=== PATIENT | female | born 1950 | race Caucasian/White ===

== ENCOUNTER 2018-09-10 13:14 | Outpatient (REF) | payer MEDICARE, OTHER, SELFPAY ==
[2018-09-10 19:20] LABS: HCT 42.4 % (36.0-46.0); HGB 14.1 g/dL (12.0-15.5); Mean Corp. HGB Concentration 33.3 g/dL (32.0-36.0); Mean Corpuscular Hemoglobin 32.8 pg (27.0-33.0); Mean Corpuscular Volume 98.6 fL (80-95); Mean Platelet Volume 10.9 fL (8.0-11.0); Platelet Count 235 x1000/uL (130-400); RBC Distribution Width 12.7 % (11.7-14.6); White Blood Cell Count 4.73 k/cumm (4.4-10.8)
[2018-09-10 19:40] LABS: TSH 1.22 uIU/mL (0.358-3.74)
== END 2018-09-10 13:34 ==
LOC: NCHCN 13:14
PROVIDERS: PCP Internal Medicine; Visit Provider Internal Medicine
DX: E03.9 Hypothyroidism, unspecified (principal); I82.402 Acute embolism and thrombosis of unspecified deep veins of left lower extremity
CPT/HCPCS: 85027; 84443

== ENCOUNTER 2019-09-13 11:42 | Outpatient (REF) | payer MEDICARE, OTHER, SELFPAY ==
[2019-09-13 19:47] LABS: HCT 43.6 % (36.0-46.0); HGB 14.5 g/dL (12.0-15.5); Mean Corp. HGB Concentration 33.3 g/dL (32.0-36.0); Mean Corpuscular Hemoglobin 32.3 pg (27.0-33.0); Mean Corpuscular Volume 97.1 fL (80-95); Mean Platelet Volume 11.1 fL (8.0-11.0); Platelet Count 239 x1000/uL (130-400); RBC 4.49 m/cumm (4.00-5.20); RBC Distribution Width 12.9 % (11.7-14.6); White Blood Cell Count 5.81 k/cumm (4.4-10.8)
[2019-09-13 20:26] LABS: Anion Gap 7.1 mmol/L (3-11); BUN 23 mg/dL (7-18); CO2 27.9 mmol/L (21.0-32.0); Calcium 9.6 mg/dL (8.5-10.1); Chloride 105 mmol/L (98-107); Glucose 97 mg/dL (74-106); Potassium 3.8 mmol/L (3.5-5.1); Sodium 140 mmol/L (136-145); TSH 1.38 uIU/mL (0.36-3.74)
== END 2019-09-13 12:02 ==
LOC: LBN 11:42
PROVIDERS: PCP Internal Medicine; Visit Provider Internal Medicine
DX: E03.9 Hypothyroidism, unspecified (principal); I82.402 Acute embolism and thrombosis of unspecified deep veins of left lower extremity
CPT/HCPCS: 80048; 85027; 84443

== ENCOUNTER 2020-10-20 18:10 | Outpatient (REF) | payer MEDICARE, OTHER, SELFPAY ==
[2020-10-20 18:46] LABS: HCT 45.2 % (36.0-46.0); HGB 15.1 g/dL (11.2-15.7); MCH 33.2 pg (27.0-33.0); MCHC 33.4 % (32.0-36.0); MCV 99.3 fL (80-95); MPV 10.5 fL (8.0-11.0); Platelet Count 222 10^3/uL (130-400); RBC 4.55 10^6/uL (3.93-5.22); RDW 12.3 % (11.7-14.6); RDW-SD 45.4 fL; WBC 5.57 10^3/uL (4.4-10.8)
[2020-10-20 19:15] LABS: Anion Gap 9.1 mmol/L (3-11); BUN 24 mg/dL (7-18); CO2 27.9 mmol/L (21.0-32.0); CREATININE 0.7 mg/dL (0.55-1.02); Calcium 10.1 mg/dL (8.5-10.1); Chloride 106 mmol/L (98-107); Glucose 125 mg/dL (74-106); Potassium 3.9 mmol/L (3.5-5.1); Sodium 143 mmol/L (136-145)
== END 2020-10-20 18:11 | disposition home or self-care (01) ==
LOC: NCHCN 18:10
PROVIDERS: PCP Internal Medicine; Visit Provider Internal Medicine
DX: E03.9 Hypothyroidism, unspecified (principal); I80.202 Phlebitis and thrombophlebitis of unspecified deep vessels of left lower extremity
CPT/HCPCS: 80048; 85027; 84443

== ENCOUNTER 2022-09-09 13:14 | Outpatient (REF) | payer MEDICARE, OTHER, SELFPAY ==
[2022-09-09 20:11] LABS: HCT 42.7 % (36.0-46.0); HGB 14.7 g/dL (11.2-15.7); MCH 33.1 pg (27.0-33.0); MCHC 34.4 % (32.0-36.0); MCV 96 fL (80-95); MPV 10.8 fL (8.0-11.0); Platelet Count 205 10^3/uL (130-400); RBC 4.44 10^6/uL (3.93-5.22); RDW 11.9 % (11.7-14.6); RDW-SD 41.7 fL; WBC 6.87 10^3/uL (4.4-10.8)
[2022-09-09 20:33] LABS: Anion Gap 6.3 mmol/L (3-11); BUN 24 mg/dL (7-18); CO2 30.7 mmol/L (21.0-32.0); CREATININE 0.7 mg/dL (0.55-1.02); Calcium 10.3 mg/dL (8.5-10.1); Chloride 103 mmol/L (98-107); Estimated GFR 93.56 (mL/min/1.73m2); Glucose 90 mg/dL (74-106); Potassium 4.5 mmol/L (3.5-5.1); Sodium 140 mmol/L (136-145); TSH 2.42 uIU/mL (0.36-3.74)
== END 2022-09-09 13:15 | disposition home or self-care (01) ==
LOC: NCHCN 13:14
PROVIDERS: PCP Internal Medicine; Visit Provider Internal Medicine
DX: D68.59 Other primary thrombophilia (principal); I82.402 Acute embolism and thrombosis of unspecified deep veins of left lower extremity; E03.9 Hypothyroidism, unspecified
CPT/HCPCS: 80048; 85027; 84443

== ENCOUNTER 2023-09-15 13:25 | Outpatient (REF) | payer MEDICARE, OTHER, SELFPAY ==
[2023-09-15 20:06] LABS: HCT 44.4 % (36.0-46.0); HGB 14.9 g/dL (11.2-15.7); MCH 32.8 pg (27.0-33.0); MCHC 33.6 % (32.0-36.0); MCV 98 fL (80-95); MPV 10.8 fL (8.0-11.0); Platelet Count 231 10^3/uL (130-400); RBC 4.54 10^6/uL (3.93-5.22); RDW 12.5 % (11.7-14.6); RDW-SD 44.8 fL; WBC 5.52 10^3/uL (4.4-10.8)
[2023-09-15 20:47] LABS: ALT 36 U/L (14-59); AST 24 U/L (15-37); Albumin 3.9 g/dL (3.4-5.0); Alkaline Phosphatase 82 U/L (46-116); Anion Gap 6.8 mmol/L (3-11); BUN 19 mg/dL (7-18); Bilirubin, Total 0.3 mg/dL (0.2-1.0); CO2 29.2 mmol/L (21.0-32.0); CREATININE 0.8 mg/dL (0.55-1.02); Chloride 106 mmol/L (98-107); Estimated GFR 79.22 (mL/min/1.73m2); Glucose 101 mg/dL (74-106); Potassium 3.8 mmol/L (3.5-5.1); Sodium 142 mmol/L (136-145); TSH 2.66 uIU/Ml (0.36-3.74); Total Protein 6.9 g/dL (6.4-8.2)
== END 2023-09-15 13:26 | disposition home or self-care (01) ==
LOC: NCHCN 13:25
PROVIDERS: PCP Internal Medicine; Visit Provider Internal Medicine
DX: E03.9 Hypothyroidism, unspecified (principal); I82.402 Acute embolism and thrombosis of unspecified deep veins of left lower extremity; D68.59 Other primary thrombophilia; Z79.01 Long term (current) use of anticoagulants
CPT/HCPCS: 80053; 85027; 84443

== ENCOUNTER 2024-09-16 12:11 | Outpatient (REF) | payer MEDICARE, OTHER, SELFPAY ==
[2024-09-16 18:45] LABS: HCT 45.9 % (36.0-46.0); HGB 15.6 g/dL (11.2-15.7); MCH 32.6 pg (27.0-33.0); MCV 96 fL (80-95); MPV 10.6 fL (8.0-11.0); Platelet Count 225 10^3/uL (130-400); RBC 4.78 10^6/uL (3.93-5.22); RDW 12.4 % (11.7-14.6); RDW-SD 43.9 fL; WBC 6.74 10^3/uL (4.4-10.8)
[2024-09-16 19:10] LABS: ALT 41 U/L (14-59); AST 25 U/L (15-37); Albumin 4.2 g/dL (3.4-5.0); Alkaline Phosphatase 97 U/L (46-116); Anion Gap 5.2 mmol/L (3-11); BUN 26 mg/dL (7-18); Bilirubin, Total 0.4 mg/dL (0.2-1.0); CO2 30.8 mmol/L (21.0-32.0); CREATININE 0.8 mg/dL (0.55-1.02); Calcium 10.3 mg/dL (8.5-10.1); Calculated LDL 131 mg/dL (<100); Chloride 105 mmol/L (98-107); Cholesterol 244 mg/dL (<200); Estimated GFR 78.72 (mL/min/1.73m2); Glucose 104 mg/dL (74-106); HDL Cholesterol 55 mg/dL (>or=50); Potassium 3.9 mmol/L (3.5-5.1); Sodium 141 mmol/L (136-145); TSH 2.61 uIU/mL (0.36-3.74); Total Protein 7.3 g/dL (6.4-8.2); Triglyceride 290 mg/dL (<150)
== END 2024-09-16 12:12 | disposition home or self-care (01) ==
LOC: NCHCN 12:11
PROVIDERS: PCP Internal Medicine; Visit Provider Internal Medicine
DX: E03.9 Hypothyroidism, unspecified (principal); D68.61 Antiphospholipid syndrome; Z13.220 Encounter for screening for lipoid disorders
CPT/HCPCS: 80053; 80061; 85027; 84443